=== PATIENT | female | born 1925 | race Caucasian/White ===

== ENCOUNTER 2016-05-16 23:02 | Inpatient (IN) | payer MEDICARE, BC ==
[~2016-05-16] VITALS: Ht 165.1 cm; Wt 50.2 kg
[2016-05-16] MEDS ORDERED: PHARMACY TO DOSE LEVAQUIN IV SCH (23:20)
[2016-05-16] MEDS: SALINE FLUSH 10 ML FLUSH SCH (23:20)
[2016-05-16] MEDS ORDERED: SALINE FLUSH 10 ML FLUSH PRN (23:20)
[2016-05-17 01:43] VITALS: BMI 20.1
[2016-05-17] MEDS ORDERED: METRONIDAZOLE 500MG/100ML 100 ML IV SCH ×2 (01:50)
[2016-05-17 02:13] VITALS: BP_SYST 119; RESP 16; TEMP 97.5
[2016-05-17] MEDS ORDERED: LEVOFLOXACIN 750 MG/150 ML 150 ML IV ONE (02:15)
[2016-05-17] MEDS: SODIUM CHLORIDE 0.9% FLUSH BAG 500 ML IV SCH (02:23)
[2016-05-17] MEDS: SODIUM CHLORIDE 0.9% 1,000 ML IV SCH ×2 (02:24→16:07)
[2016-05-17] MEDS: METRONIDAZOLE IV SCH ×3 (05:17→18:22)
[2016-05-17] MEDS: SODIUM CHLORIDE 0.9% IV SCH ×3 (05:17→18:22)
[2016-05-17] MEDS: MORPHINE 2 MG/ML SYR IV PRN ×3 (06:20→19:41)
[2016-05-17 07:55] VITALS: BP_SYST 128; RESP 18; TEMP 97.7
[2016-05-17] MEDS: SALINE FLUSH 10 ML FLUSH SCH ×2 (08:00→19:49)
[2016-05-17] MEDS: LEVOFLOXACIN 750 MG/150 ML 150 ML IV SCH (08:57)
[2016-05-17] MEDS ORDERED: ESCITALOPRAM 10 MG TAB PO SCH (09:00)
[2016-05-17 11:50] VITALS: BP_SYST 128; RESP 18; TEMP 97.5
[2016-05-17] MEDS: ONDANSETRON 4 MG VIAL IV PRN ×2 (12:46→21:35)
[2016-05-17] MEDS ORDERED: MAGNESIUM HYDROX PO PRN (13:25)
[2016-05-17] MEDS ORDERED: CALCIUM CARB PO PRN (13:25)
[2016-05-17] MEDS ORDERED: HALOPERIDOL 5 MG/ML VIAL IM PRN (13:25)
[2016-05-17] MEDS ORDERED: MAG HYDROX 30 ML UDC PO PRN (13:25)
[2016-05-17] MEDS ORDERED: quiNINE SULF 324 MG CAP PO SCH (13:26)
[2016-05-17] MEDS: SIMETHICONE 80 MG CHEW TAB PO PRN (14:36)
[2016-05-17] MEDS: Carvedilol 3.125 MG TAB PO SCH ×2 (14:36→20:43)
[2016-05-17] MEDS: ASPIRIN 81 MG CHEW TAB PO SCH (14:36)
[2016-05-17 15:25] VITALS: BP_SYST 124; RESP 18; TEMP 98.3
[2016-05-17 19:16] VITALS: BP_SYST 152; RESP 20; TEMP 97.6
[2016-05-17] MEDS: Atorvastatin 20 MG TAB PO SCH (20:43)
[2016-05-18] VITALS (7 sets, daily range): BP systolic 139–169; RESP 18–20; TEMP 97.5–98.7
[2016-05-18] MEDS: METRONIDAZOLE IV SCH ×5 (00:39→23:54)
[2016-05-18] MEDS: SODIUM CHLORIDE 0.9% IV SCH ×5 (00:39→23:54)
[2016-05-18] MEDS: SODIUM CHLORIDE 0.9% 1,000 ML IV SCH ×2 (03:59→16:53)
[2016-05-18] MEDS: MORPHINE 2 MG/ML SYR IV PRN (04:04)
[2016-05-18] MEDS: SODIUM CHLORIDE 0.9% FLUSH BAG 500 ML IV SCH (06:00)
[2016-05-18] MEDS: SALINE FLUSH 10 ML FLUSH SCH ×2 (08:00→21:19)
[2016-05-18] MEDS: ASPIRIN 81 MG CHEW TAB PO SCH (09:22)
[2016-05-18] MEDS: Carvedilol 3.125 MG TAB PO SCH ×2 (09:22→21:19)
[2016-05-18] MEDS: LEVOFLOXACIN 750 MG/150 ML 150 ML IV SCH (09:22)
[2016-05-18] MEDS: ONDANSETRON 4 MG VIAL IV PRN (10:19)
[2016-05-18] MEDS: SIMETHICONE 80 MG CHEW TAB PO PRN ×2 (12:51→18:24)
[2016-05-18] MEDS: TRAZODONE 50 MG TAB PO SCH (21:19)
[2016-05-18] MEDS: Atorvastatin 20 MG TAB PO SCH (21:19)
[2016-05-19] VITALS (7 sets, daily range): BP systolic 123–159; RESP 17–20; TEMP 97.3–98.4
[2016-05-19] MEDS: MORPHINE 2 MG/ML SYR IV PRN (00:52)
[2016-05-19] MEDS: METRONIDAZOLE IV SCH ×3 (06:18→16:52)
[2016-05-19] MEDS: SODIUM CHLORIDE 0.9% IV SCH ×3 (06:18→16:52)
[2016-05-19] MEDS: SODIUM CHLORIDE 0.9% FLUSH BAG 500 ML IV SCH (06:18)
[2016-05-19] MEDS: SALINE FLUSH 10 ML FLUSH SCH ×2 (08:00→20:23)
[2016-05-19] MEDS: LEVOFLOXACIN 750 MG/150 ML 150 ML IV SCH (08:25)
[2016-05-19] MEDS: ASPIRIN 81 MG CHEW TAB PO SCH (08:25)
[2016-05-19] MEDS: Carvedilol 3.125 MG TAB PO SCH ×2 (08:25→20:23)
[2016-05-19] MEDS: ACETAMINOPHEN 500 MG TAB PO SCH (16:51)
[2016-05-19] MEDS: TRAZODONE 50 MG TAB PO SCH (20:23)
[2016-05-19] MEDS: Atorvastatin 20 MG TAB PO SCH (20:23)
[2016-05-19] MEDS ORDERED: KCL CR 20 MEQ TAB PO ONE (23:05)
[2016-05-20] VITALS (10 sets, daily range): BP systolic 121–136; RESP 18; TEMP 97.2–98.6
[2016-05-20] MEDS: METRONIDAZOLE IV SCH ×4 (00:18→18:11)
[2016-05-20] MEDS: SODIUM CHLORIDE 0.9% IV SCH ×4 (00:18→18:11)
[2016-05-20] MEDS: SODIUM CHLORIDE 0.9% FLUSH BAG 500 ML IV SCH (05:36)
[2016-05-20] MEDS: SALINE FLUSH 10 ML FLUSH SCH (08:00)
[2016-05-20] MEDS: ASPIRIN 81 MG CHEW TAB PO SCH (08:26)
[2016-05-20] MEDS: ACETAMINOPHEN 500 MG TAB PO SCH ×3 (08:26→16:53)
[2016-05-20] MEDS: Carvedilol 3.125 MG TAB PO SCH (08:26)
[2016-05-20] MEDS: LEVOFLOXACIN 750 MG/150 ML 150 ML IV SCH (08:28)
== END 2016-05-20 22:32 | DRG 391 ==
LOC: ENRESERVTM → ENRESERVDT → 3NT 05-17 01:06 → ENPENDDIS 05-17 01:06
PROVIDERS: ADMIT Internal Medicine; ATTEND Internal Medicine
CPT/HCPCS: 80053; 81001; 85025; 87040; 87088; 99222; 99232; 99233; 99239